=== PATIENT | male | born 1945 | race Caucasian/White ===

== ENCOUNTER 2018-11-21 07:30 | Outpatient (CLI) | payer MEDICARE, OTHER ==
--- NOTE | 2018-11-21 11:59 | NM ---
GASTRIC EMPTYING EVALUATION: Indication: Abnormal weight loss. Radiopharmaceutical: 2.1 mCi Technetium 99M Sulfur Colloid orally with eggs. FINDINGS: At the 30 minute time marker there was 51% emptying. At the 1 hour time marker there was 87% emptying . At the 2 hour time marker there was 98% emptying. At the 3 hour time marker, there was 99% emptying . The T is 30 minutes. IMPRESSION: Normal gastric emptying evaluation. POS: [facility]
== END 2018-11-21 07:31 | disposition home or self-care (01) ==
LOC: NM 07:30
PROVIDERS: ATTEND Internal Medicine
DX: R63.4 Abnormal weight loss (principal)
CPT/HCPCS: 78264; A9541

== ENCOUNTER 2019-01-30 07:51 | Outpatient (CLI) | payer MEDICARE, OTHER ==
[2019-01-30 08:57] LABS: Estimated GFR-MDRD - POC Greater than 90
--- NOTE | 2019-01-30 11:07 | CT ---
Pre and postcontrast enhanced images of abdomen and pelvis. HISTORY: Diarrhea malabsorption of weight loss. Pre and postcontrast enhanced images of the abdomen pelvis demonstrate calcifications seen in the dominic ral annulus. Coronary artery calcination seen. Extensive lower thoracic entire lumbar and axial lift surgical screws in place. Right external and common femoral vein endovascular stent seen. Colonic surgical makenzie seen. Inferior vena caval filter is in place. Two large left renal cortical cyst seen. A moderate amount of stool seen in the colon. The small bowel is mildly dilated. IMPRESSION: Extensive spinal surgical changes.
== END 2019-01-30 07:52 | disposition home or self-care (01) ==
LOC: CT 07:51
PROVIDERS: ATTEND Internal Medicine Gastroenterology
DX: K90.9 Intestinal malabsorption, unspecified (principal); R19.7 Diarrhea, unspecified; R10.13 Epigastric pain; R63.4 Abnormal weight loss; Z98.890 Other specified postprocedural states
CPT/HCPCS: 74178; 82565